=== PATIENT | female | born 1945 | race Caucasian/White ===

== ENCOUNTER 2017-06-03 21:50 | Emergency (ER) | payer OTHER, MEDICARE ==
[~2017-06-03] VITALS: Ht 152.4 cm; Wt 51.9 kg
[~2017-06-03 21:50] MED LIST: AMOXICILLIN875 MG PO; ASPIR-LOW81 MG PO; BYSTOLIC10 MG PO; BYSTOLIC2.5 MG PO; CENTRUM COMPLE1 EACH PO; Cipro PO; DUONEB3 ML IH; HYDROCHLOROTH12.5 M3 PO; LIPITOR10 MG PO; LISINOPRIL20 MG PO; LORAZEPAM0.5 MG PO; NORCO 5/3251 TABLET PO; OxyCODONE PO; PROVENTIL,2.5 MG/3 M IH; STRESS TAB; STRESS-C WITH1 EAC1 PO; Sterapred DS 10 mg U PO; TRAMADOL HCL50 MG PO; TRIBENZOR 20-51 EAC1 PO; VICODIN 5-3001 EACH PO; ZOFRAN8 MG PO; ZYRTEC10 M2 PO
[2017-06-03 22:59] LABS: HEMATOCRIT 38.7 % (36.0-46.0); MCH 29.6 PG (29.0-34.0); MCHC 33.1 G/DL (30.0-36.0); MCV 89.6 FL (83-99); MEAN PLAT.VOLUME 10.1 uM^3 (9.5-12.4); PLATELET COUNT 281 K/uL (156-360); RBC DIS.WIDTH-CV 14.2 % (11.8-14.6); RBC DIS.WIDTH-SD 46.4 % (39-53); RED BLOOD COUNT 4.32 M/uL (3.80-5.20)
[2017-06-03 23:10] LABS: CHLORIDE 103 mEq/L (99-109); POTASSIUM 5.1 mEq/L (3.7-5.4); SODIUM 143 mEq/L (136-147)
[2017-06-03 23:12] LABS: GLUCOSE 114 mg/dL (70-99)
[2017-06-03 23:13] LABS: ANION GAP 13 MEQ/L (2-14)
[2017-06-03 23:16] LABS: GFR ESTIMATE (CALCULATED) 43 mL/min/
[2017-06-03 23:17] LABS: UREA NITROGEN (BUN) 32 mg/dL (9-23)
[2017-06-03 23:18] LABS: TROP-I INTERPRETATION NEGATIVE; TROPONIN-I < 0.01 ng/mL (0.0-0.30)
[2017-06-04 00:45] VITALS: BP 155/78
== END 2017-06-04 00:46 | disposition home or self-care (01) ==
LOC: EME 21:50
DX: E87.5 Hyperkalemia (principal); M06.9 Rheumatoid arthritis, unspecified; I10 Essential (primary) hypertension; Z98.1 Arthrodesis status; F17.200 Nicotine dependence, unspecified, uncomplicated
CPT/HCPCS: 80048; 84484; 85027; 93005; 99281; 99284

== ENCOUNTER 2018-05-01 13:14 | Emergency (ER) | payer OTHER, MEDICARE ==
[~2018-05-01] VITALS: Ht 149.9 cm; Wt 57.1 kg
[2018-05-01 14:20] LABS: HEMATOCRIT 40.8 % (36.0-46.0); HEMOGLOBIN 13.6 G/DL (11.9-15.5); MCH 29.7 PG (29.0-34.0); MCHC 33.3 G/DL (30.0-36.0); MCV 89.1 FL (83-99); RBC DIS.WIDTH-CV 13.1 % (11.8-14.6); RBC DIS.WIDTH-SD 42.5 % (39-53); RED BLOOD COUNT 4.58 M/uL (3.80-5.20); WHITE BLOOD COUNT 10.9 K/uL (4.1-10.2)
[2018-05-01 14:25] LABS: ALBUMIN 4.3 g/dL (3.2-4.8)
[2018-05-01 14:26] LABS: CHLORIDE 102 mEq/L (99-109); POTASSIUM 5.1 mEq/L (3.7-5.4); SODIUM 140 mEq/L (136-147)
[2018-05-01 14:28] LABS: GLUCOSE 97 mg/dL (70-99); TOTAL PROTEIN 7.5 g/dL (6.4-8.3)
[2018-05-01 14:30] LABS: TOTAL BILIRUBIN 0.4 mg/dL (0.0-1.0)
[2018-05-01 14:31] LABS: ALKALINE PHOSPHATASE 101 IU/L (3-129)
[2018-05-01 14:32] LABS: CREATININE 1.2 mg/dL (0.6-1.3); GFR ESTIMATE (CALCULATED) 47 mL/min/
[2018-05-01 14:32] LABS: APPEARANCE CLEAR ((CLEAR)); BILIRUBIN NEGATIVE; BLOOD NEGATIVE; COLOR YELLOW ((YELLOW)); GLUCOSE (STRIP) NEGATIVE; KETONES NEGATIVE; LEUKOCYTES TRACE; NITRITE NEGATIVE; PROTEIN (STRIP) NEGATIVE; SPECIFIC GRAVITY 1.024 (1.000-1.030); UROBILINOGEN 0.2 MG/DL (0.2-1.0)
[2018-05-01 14:33] LABS: AST (GOT) 22 IU/L (2-34); UREA NITROGEN (BUN) 36 mg/dL (9-23)
[2018-05-01 14:35] LABS: ALT (GPT) 12 IU/L (3-49)
[2018-05-01 14:45] LABS: BACTERIA NONE SEEN /HPF; CALCIUM OXALATE CRYSTALS 1+ /HPF; EPITHELIAL CELLS 1+ /HPF; HYALINE CASTS 30-40 /LPF; MUCUS TRACE /LPF; RED BLOOD CELLS 0-5 /HPF (0-5); UCUL ADDED? NO; WHITE BLOOD CELLS 0-5 /HPF (0-5)
[2018-05-01 14:58] LABS: LIPASE 21 U/L (1.0-51.0)
[2018-05-01 15:08] LABS: PLAT.SUFFICIENCY ADEQUATE; PLATELET COUNT 364 K/uL (156-360)
[2018-05-01 15:16] LABS: TROP-I INTERPRETATION NEGATIVE; TROPONIN-I < 0.01 ng/mL (0.0-0.30)
[2018-05-01 15:27] LABS: PHOSPHORUS 3.9 mg/dL (2.5-4.9)
[2018-05-01 15:29] LABS: DIRECT BILIRUBIN 0.1 mg/dL (0.0-0.3)
[2018-05-01 18:55] LABS: TROP-I INTERPRETATION NEGATIVE; TROPONIN-I < 0.01 ng/mL (0.0-0.30)
[2018-05-01] MEDS ORDERED: NORCO 5/3251 TABLET PO (19:29)
[2018-05-01] MEDS ORDERED: BENTYL20 MG PO (19:29)
[2018-05-01 19:45] VITALS: BP 129/73
== END 2018-05-01 19:49 | disposition home or self-care (01) ==
LOC: EME 13:14
PROVIDERS: Nurse Practitioner Family
DX: R10.31 Right lower quadrant pain (principal); K59.00 Constipation, unspecified; I10 Essential (primary) hypertension; G89.4 Chronic pain syndrome; M06.9 Rheumatoid arthritis, unspecified; Z79.82 Long term (current) use of aspirin; F17.200 Nicotine dependence, unspecified, uncomplicated; Z88.1 Allergy status to other antibiotic agents; Z79.891 Long term (current) use of opiate analgesic
CPT/HCPCS: 71046; 74177; 80053; 81003; 82248; 83690; 84100; 84484; 85027; 99281; 99285; J1885; J2405; J7030